=== PATIENT | male | born 1960 | race Caucasian/White ===

== ENCOUNTER 2022-01-27 18:17 | Emergency (ER) | payer MEDICARE ==
[~2022-01-27 18:17] MED LIST: AMLODIPINE BESY10 MG PO; GLUCOPHAGE500 MG PO; JANUVIA100 MG PO; METOPROLOL SUCC50 MG PO
[2022-01-27 18:55] LABS: HEMOGLOBIN 16.3 gm/dl (14.0-17.5); RED BLOOD COUNT 5.19 M/UL (4.20-5.50); WHITE BLOOD COUNT 15.2 K/UL (4.5-11.0)
[2022-01-27 19:29] LABS: BUN/CREATININE RATIO 20 (0-10)
[2022-01-27] MEDS ORDERED: WIXELA 250-501 EACH INH (21:36)
[2022-01-27] MEDS ORDERED: MUCINEX600 MG PO (21:38)
== END 2022-01-27 21:24 | disposition home or self-care (01) ==
LOC: ER1 18:17
PROVIDERS: Physician Assistant
DX: J44.1 Chronic obstructive pulmonary disease with (acute) exacerbation (principal); Z20.822 Contact with and (suspected) exposure to COVID-19; E11.9 Type 2 diabetes mellitus without complications; I10 Essential (primary) hypertension; F17.210 Nicotine dependence, cigarettes, uncomplicated; Z88.0 Allergy status to penicillin; Z88.5 Allergy status to narcotic agent
CPT/HCPCS: 0240U; 71045; 80053; 82550; 82553; 84484; 85025; 93005; 94640; 96374; 99285; J1100